=== PATIENT | female | born 1950 | race Caucasian/White ===

== ENCOUNTER 2019-02-21 15:37 | Emergency (ER) | payer MEDICARE ==
[~2019-02-21] VITALS: Ht 167.6 cm; Wt 80.0 kg
[2019-02-21 17:00] VITALS: BP 158/88
== END 2019-02-21 17:00 | disposition home or self-care (01) ==
LOC: ED 15:37
DX: L23.9 Allergic contact dermatitis, unspecified cause (principal); R21 Rash and other nonspecific skin eruption

== ENCOUNTER 2022-05-19 07:35 | Emergency (ER) | payer MEDICARE ==
[~2022-05-19] VITALS: Ht 167.6 cm; Wt 81.0 kg
[2022-05-19 07:40] VITALS: BP 147/82
[2022-05-19 07:45] VITALS: BP 126/81
[2022-05-19 08:00] VITALS: BP 138/79
[2022-05-19 08:12] LABS: HEMATOCRIT 42.6 % (37.0-47.0); HEMOGLOBIN 13.9 g/dl (12.0-16.0); IMMATURE GRANULOCYTES 0.2 % (0.0-5.0); LYMPH% 14.7 % (15-41); MEAN CORPUSCULAR HGB 29.7 pG CALC (26.0-32.0); MEAN CORPUSCULAR HGB CONC 32.6 g/dL CAL (32.0-36.0); MONO% 10.4 % (2-13); NEUT# 4.88 thou/uL (2.00-7.15); NEUT% 74.7 % (42-76); RED BLOOD COUNT 4.68 mill/uL (4.20-5.60); RED CELL DISTRI WIDTH 12.9 % (11.5-15.5)
[2022-05-19 08:14] LABS: GFR FOR AFR.AMER. > 60 ML/MIN (>=60 (CALC)); GFR OTHER RACES > 60 ML/MIN (>=60 (CALC))
[2022-05-19 08:18] VITALS: BP 144/80
[2022-05-19 08:30] VITALS: BP 120/72
[2022-05-19 08:31] LABS: ALBUMIN 3.9 g/dL (3.2-5.0); ALKALINE PHOSPHATASE 109 u/l (38-126); ANION GAP 11 (6-22 (CALC)); BILIRUBIN, TOTAL 0.3 mg/dL (0.02-1.3); BUN 9 mg/dL (8-23); BUN/CREATININE RATIO 16 (12-20 (CALC)); CARBON DIOXIDE 20 mmol/l (22-30); CHLORIDE 110 mmol/l (95-108); CREATININE 0.5 mg/dL (0.5-1.0); GFR FOR AFR.AMER. > 60 ML/MIN (>=60 (CALC)); GFR OTHER RACES > 60 ML/MIN (>=60 (CALC)); POTASSIUM 3.9 mmol/l (3.5-5.1); SGOT/AST 26 u/l (9-36); SODIUM 137 mmol/l (137-146); TOTAL PROTEIN 6.8 g/dL (6.3-8.2)
[2022-05-19] MEDS ORDERED: DECADRON4 MG PO (08:47)
[2022-05-19] MEDS ORDERED: ZPAK PO (08:48)
[2022-05-19 09:00] VITALS: BP 120/83
== END 2022-05-19 08:50 | disposition home or self-care (01) ==
LOC: ED 07:35
PROVIDERS: Family Medicine
DX: U07.1 COVID-19 (principal); J02.9 Acute pharyngitis, unspecified; R05.9 Cough, unspecified